=== PATIENT | female | born 1980 | race Caucasian/White ===

== ENCOUNTER 2019-11-11 16:42 | Emergency (ER) | payer BC, SELFPAY ==
--- NOTE | 2019-11-11 16:52 | ED.FEMALEGU ---
HPI - Female Genitourinary General Chief complaint: Urogenital-Female Stated complaint: abd pain/pos bladder infection Time Seen by Provider: 11/11/19 17:03 Source: patient and RN notes reviewed Mode of arrival: ambulatory Limitations: no limitations History of Present Illness HPI Narrative: 39-year-old female presents with concern for possible bladder infection. Reports intermittent left lower quadrant abdominal/suprapubic pain. She reports pain is been present for approximately 2 weeks. Reports she was seen by her junior marketing associate 4 days ago and was swabbed for STDs, yeast, bacterial vaginosis and was given prescriptions for Diflucan and Flagyl. Reports she received a phone call today letting her know that all those tests were negative. Reports normal pelvic exam 4 days ago. She denies abnormal vaginal discharge, abnormal vaginal bleeding, fever, nausea, vomiting, flank pain. Reports she recently started control pills-Loestrin. Reports her last menstrual period was 3 weeks ago, reports having a normal bowel movement yesterday. She denies dysuria, hematuria. Reports intermittent frequency MD elicited complaint: UTI Related Data Home Medications Medication Instructions Recorded Confirmed alprazolam 0.25 mg PO DAILY PRN 09/04/19 09/19/19 eszopiclone 2 mg PO HS 11/11/19 11/11/19 norethindrone-e.estradiol-iron [Lo 1 tablet PO DAILY 11/11/19 11/11/19 Loestrin Fe] Allergies Allergy/AdvReac Type Severity Reaction Status Date / Time egg Allergy Mild GI Verified 11/11/19 17:00 DISTRESS, CRAMPING Influenza Virus Vaccines Allergy Unknown stomach Verified 11/11/19 17:00 pain Review of Systems Review of Systems: Narrative: CONSTITUTIONAL: Denies malaise, chills, sweats, or fever. CARDIOVASCULAR: Denies chest pain, palpitations, or edema. RESPIRATORY: Denies cough or dyspnea. GASTROINTESTINAL: Reports left lower quadrant abdominal/suprapubic pain. Denies nausea, vomiting, diarrhea, bloody, or mucous stools. Denies constipation GENITOURINARY: Denies dysuria, urgency or hematuria. Reports occasional frequency SKIN: Denies rash or itching. Denies abnormal vaginal discharge or bleeding MUSCULOSKELETAL: Denies back pain, joint pain, or myalgia. NEUROLOGIC: Denies numbness, weakness, or headache. All systems reviewed & are unremarkable except as noted in HPI and below PMFSH Social History Social History Smoking status: Never smoker Second hand tobacco smoke exposure: No Alcohol intake: current Gender identity (if verbalized by the patient): Female Comments At time of signature, agree with nursing past medical, surgical, social and family history. There is no relevant family history pertinent to the presenting complaint Exam Narrative: Exam Narrative: GENERAL: Well-appearing, well-nourished, and in no acute distress. HEAD: Normocephalic. EYES: PERRLA, conjunctivae clear. NECK: Supple. No lymphadenopathy CHEST: Clear to auscultation. No respiratory distress. HEART: Regular rate and rhythm. No murmur heard. Normal peripheral pulses. ABDOMEN: Soft, nontender upon palpation, nondistended, normal active bowel sounds, no palpable or pulsatile masses, no guarding. No CVA tenderness SKIN: Warm, dry, no rash. NEURO: Alert and oriented x3. PSYCH: Normal mood and affect : Other: Discussed pelvic exam with patient, patient reports having a pelvic exam with her sugar cane farm manager on Sunday for this pain, and declines a pelvic exam. Course Course Emergency Course: Discussed with patient limited diagnostic capability at the [facility]. Discussed seeking further evaluation in the emergency department. Patient reports she would rather seek further evaluation with her primary care provider. Reports she will go to the emergency room symptoms worsen or do not improve or she can see her doctor. Patient is aware of diagnosis, understands and agrees to treatment plan. Anticipato
[2019-11-11 16:54] VITALS: BP 112/47; PULSE 65; RESP 16; TEMP 37.1; O2SAT 100
== END 2019-11-11 17:19 | disposition home or self-care (01) ==
PROVIDERS: Emergency Provider Nurse Practitioner; PCP Internal Medicine
DX: R10.32 Left lower quadrant pain (principal); F41.9 Anxiety disorder, unspecified
CPT/HCPCS: 81003; 87086; 99213; G0463

== ENCOUNTER 2020-09-08 06:54 | Outpatient (NON) | payer BC, SELFPAY ==
[2020-09-08 18:06] LABS: SARS-CoV-2 RNA PCR Negative
== END 2020-09-08 06:55 ==
PROVIDERS: PCP Internal Medicine; Visit Provider Internal Medicine
DX: Z20.828 Contact with and (suspected) exposure to other viral communicable diseases (principal)
CPT/HCPCS: 87635; C9803; U0003

== ENCOUNTER → 2020-11-15 08:57 | Outpatient (CLI) | payer BC, SELFPAY ==
[2020-11-15 19:33] LABS: SARS-CoV-2 RNA PCR Negative
== END ==
PROVIDERS: PCP Internal Medicine; Visit Provider Internal Medicine
DX: R68.89 Other general symptoms and signs (principal); Z20.822 Contact with and (suspected) exposure to COVID-19
CPT/HCPCS: C9803; U0003; U0005

== ENCOUNTER 2022-05-24 13:05 | Emergency (ER) | payer BC, SELFPAY ==
[2022-05-24] VITALS (26 sets, daily range): BP systolic 103–125; BP diastolic 52–77; PULSE 58–86; RESP 9–20; TEMP 36.6; O2SAT 96–100
--- NOTE | ~2022-05-24 | US_ITS ---
EXAMINATION: US pelvic complete w TV DATE: 05/24/2022 15:23 INDICATION: vaginal bleeding TECHNIQUE: Multiple transabdominal and endovaginal sonographic images of the pelvis were obtained. COMPARISON: 10/17/2021, CT abdomen and pelvis 02/15/2010 FINDINGS: Uterus: 9.9 x 6.9 x 6.1 cm. Endometrial complex measures 5 mm. 2.5 cm myometrial uterine fibroid. Right Ovary: 3.3 x 1.5 x 2.3 cm. Vascular flow is present. Left Ovary: 3.2 x 2.4 x 2.5 cm. Vascular flow is present. There is small volume free fluid in the pelvis, within physiologic range. IMPRESSION: Uterine fibroid. Otherwise normal pelvic ultrasound findings. Reviewed, dictated and finalized at location K.
--- NOTE | 2022-05-24 13:55 | ED.FEMALEGU ---
HPI - Female Genitourinary General Chief complaint: Vaginal Bleeding Stated complaint: vag bleeding Time Seen by Provider: 05/24/22 13:49 Source: patient Mode of arrival: ambulatory Limitations: no limitations History of Present Illness HPI Narrative: The patient is a 41-year-old female presenting to the emergency department for evaluation of vaginal bleeding. Patient states that she had an IUD placed approximately 6 months ago and has had some intermittent bleeding since that time. She states that she did have a normal menstrual period 2 weeks ago, with onset of heavy vaginal bleeding this morning. Patient states that she is soaking through a regular tampon every 15 to 30 minutes. Patient states that due to the significant amount of bleeding and some lightheadedness, patient decided to seek care in the emergency department after discussion with her LEAD RAMP AGENT Dr. Gonzales. Patient reports minimal pelvic cramping. Denies dysuria or hematuria. Patient states that she has had an IUD in place, and has no history of regular menstrual periods. Patient denies syncopal event. She denies numbness or weakness. Related Data Home Medications Medication Instructions Recorded Confirmed escitalopram oxalate 10 mg tablet 10 mg PO DAILY 08/18/20 11/15/20 (Lexapro) Allergies Allergy/AdvReac Type Severity Reaction Status Date / Time egg Allergy Mild GI Verified 05/24/22 13:30 DISTRESS, CRAMPING Influenza Virus Vaccines Allergy Unknown stomach Verified 05/24/22 13:30 pain Review of Systems Review of Systems: CONSTITUTIONAL: Denies fever, chills, or sweats. CARDIOVASCULAR: Denies chest pain, palpitations, or edema. RESPIRATORY: Denies cough or dyspnea. GASTROINTESTINAL: Denies abdominal pain, nausea, vomiting, or diarrhea. Reports mild pelvic pain. GENITOURINARY: Denies dysuria or hematuria. Reports vaginal bleeding. SKIN: Denies rash or itching. MUSCULOSKELETAL: Denies back pain, joint pain, or myalgia. NEUROLOGIC: Denies headache, numbness, or weakness. 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 EYES: PERRLA and EOMI. ENT: Nares clear, no rhinorrhea or epistaxis. Mucous membranes moist. NECK: Supple. CHEST: No respiratory distress, breathing even and non labored HEART: Regular rate, sinus rhythm ABDOMEN:Non distended, non tender Pelvic: Labia majora and minora normal without lesions. Vagina with blood including large blood clots; Os is dilated. IUD nearly out of the cervix. No cervical motion tenderness. No adnexal tenderness or fullness bilaterally. EXTREMITIES: Normal range of motion. No edema. SKIN: Warm, dry, no rash. NEURO:No focal deficits. Alert and oriented x3 Course Vital Signs Vital signs: Vital Signs Temperature 36.6 C 05/24/22 13:27 Pulse Rate 80 05/24/22 13:27 Respiratory Rate 14 05/24/22 13:27 Blood Pressure 111/52 L 05/24/22 13:27 Pulse Oximetry 100 05/24/22 13:27 Oxygen Delivery Room Air 05/24/22 13:27 Temperature 36.6 C 05/24/22 13:27 Pulse Rate 65 05/24/22 15:45 Respiratory Rate 16 05/24/22 15:45 Blood Pressure 108/64 05/24/22 15:45 Pulse Oximetry 100 05/24/22 15:45 Oxygen Delivery Elizabeth
[2022-05-24 14:17] LABS: Basophils Absolute Auto 0.1 K/mm3 (0.0-0.1); Basophils Percent Auto 0.6 % (0.2-1.2); Eosinophils Absolute Auto 0.2 K/mm3 (0-0.3); Eosinophils Percent Auto 2.5 % (0-4.4); Hematocrit 37.3 % (37.0-47.0); Hemoglobin 12.2 g/dL (12.0-15.0); Immature Granulocyte Absolute 0.02 K/mm3 (0.00-0.031); Immature Granulocyte Percent A 0.2 % (0-0.5); Lymphocytes Absolute Auto 2.25 K/mm3 (0.9-3.2); Lymphocytes Percent Auto 25.3 % (18.3-44.2); Mean Corpuscular HGB Conc 32.7 g/dl (32-36); Mean Corpuscular Hemoglobin 30.3 pg (26-34); Mean Corpuscular Volume 92.8 fl (80-100); Mean Platelet Volume 11.7 fl (7.4-10.4); Monocytes Absolute Auto 0.7 K/mm3 (0.1-0.6); Monocytes Percent Auto 7.4 % (2.6-8.5); Neutrophils Absolute Auto 5.7 K/mm3 (1.3-6.7); Platelet Count Result 234 k/mm3 (150-375); Red Blood Count 4.02 M/mm3 (4.2-5.4); Red Cell Distribution Width 13.1 % (11.5-14.5); White Blood Count 8.9 K/mm3 (4.5-10.0)
[2022-05-24 14:29] LABS: Alanine Aminotransferase 14 U/L (6-35); Albumin Level 4.3 g/dL (3.5-5.1); Alkaline Phosphatase 50 U/L (38-126); Anion Gap -1 mmol/L (8-16); Aspartate Amino Transferase 27 U/L (14-36); Bilirubin,Total 0.4 mg/dL (0.2-1.3); Blood Urea Nitrogen 13 mg/dL (7-17); Calcium 8.9 mg/dL (8.4-10.2); Carbon Dioxide 30 mmol/L (22-30); Chloride 102 mmol/L (98-107); Estimated CRCL calculation 75 ml/min; Estimated Glomerular Filt Rate > 60; Glucose 73 mg/dL (65-110); Potassium 4.2 mmol/L (3.4-5.0); Sodium 131 mmol/L (137-145)
[2022-05-24 14:34] LABS: Appearance Urine Slightly Cloudy (Clear); Bilirubin Urine Negative (Negative); Blood Urine 3+ (Negative); Color Urine Yellow (Yellow); Glucose Urine UA Negative (Negative); Ketones Urine Negative (Negative); Leukocyte Esterase Ur Negative LEU/UL (Negative); Nitrate Urine Negative (Negative); Protein Urine Negative (Negative); Urobilinogen Urine 0.2 mg/dL (<2.0); pH Urine 6.5 (5.0-9.0)
[2022-05-24 14:45] LABS: Beta HCG Quantitative < 2.39 mIU/ML
[2022-05-24 14:46] LABS: Mucus Urine Rare /lpf; RBC Urine 21-50 /hpf (0-2)
[2022-05-24 14:47] LABS: Add Urine Microscopic? YES
[2022-05-24 14:49] LABS: Prothrombin Time 13.2 Seconds (11.1-14.7)
--- NOTE | 2022-05-24 15:11 | PC.NURSE ---
Pt in ultrasound at this time
[2022-05-24] MEDS: TRANEXAMIC ACID 1,000 MG/10 ML AMPUL 1000 MG IV PUSH (15:44)
[2022-05-24 16:08] LABS: Hematocrit 35.3 % (37.0-47.0); Hemoglobin 11.6 g/dL (12.0-15.0)
== END 2022-05-24 18:00 | disposition home or self-care (01) ==
PROVIDERS: Emergency Provider Emergency Medicine; PCP Family Medicine
DX: N93.9 Abnormal uterine and vaginal bleeding, unspecified (principal); Z97.5 Presence of (intrauterine) contraceptive device; D25.9 Leiomyoma of uterus, unspecified
CPT/HCPCS: 36415; 76830; 76856; 80053; 81001; 84443; 84702; 85014; 85018; 85025; 85610; 85730; 86850; 86900; 86901; 96374; 99284

== ENCOUNTER 2022-05-26 00:40 | Day surgery (SDC) | payer BC, SELFPAY ==
[2022-05-25 13:11] VITALS: BMI 21.2
--- NOTE | 2022-05-25 13:18 | PC.NURSE ---
Report to the Outpatient Waiting Room, entrance under the green pavilion located off [facility], at time 1300 on date 05/26/22. OR Time: 1500. - You and your visitor will be asked to self-screen and do not enter if you have any COVID symptoms. - Only one visitor and NO children visitors are allowed at this time. - The patient visitor is requested to leave or wait in car when not with patient due to restrictions. - A mask is required within the hospital. Patients may have clear liquids (water, carbonated beverages, clear teas, apple juice) until 3 hours prior to surgery with a maximum of 20 ounces. - No food from midnight until time of surgery Take the following medications with a SIP of water the morning of surgery: ESCITALOPRAM Medications to discontinue per physician: N/A Date to take last dose: N/A Please no make-up, nail khmer, hairspray, perfume, deodorant, or body powder the day of surgery. No jewelry (including any body piercings) or valuables the day of surgery, leave them at home. Please take a shower or bath the night before, or the morning of, surgery with an antibacterial soap. Wear comfortable, loose fitting clothing. - Jewelry must be removed prior to entering the operating room. Rings and piercings that are not removed may be cut off. - The hospital will not accept responsibility for valuables. - Please leave all valuables, including medications, at home the day of surgery. If you are going home after surgery, a licensed driver lifter of sanitation truck must drive you home. - NO public transportation without another adult. - We recommend that an adult stay with you for 24 hours following discharge. - We also recommend that you do not drive, make important decision, drink alcoholic beverages, or take any drugs that were not prescribed by your health care provider for at least 24 hours after your discharge time. Follow any additional instructions given to you from your surgeon. If you or anyone in your household have experienced Covid symptoms in the past week, please notify your surgeon or the nurse liaison at the phone number below for possible testing. Telephone instructions given to PT - ESSIE DE SANTIAGO and asked if any additional questions and then verbalized understanding. Patient advised to call surgeon office or pre surgery nurse liaison [phone] if any additional questions.
--- NOTE | 2022-05-25 17:18 | PM.IMHP ---
H&P: HPI History of Present Illness Date/Time: 05/25/22 17:18 Chief Complaint: AUB Narrative: Ines is a 41yo P2002, LMP 05/24/22 who presented to clinic on 05/25/22 for ER follow up. She woke up 05/24/22 @ 0430am thinking she was urinating the bed. She went to the bathroom and was covered in blood. She was soaking through tampons every 15 minutes. It slightly slowed down but at noon, she was still bleeding heavily and started feeling light headed. She went to the ER where blood counts were stable, but she continued to have heavy vaginal bleeding. In one of the large clots (measuring ~4-5cm per the ER doc), the Mirena IUD was expelled. She was give a dose of IV TXA to slow the bleeding. Beta HCG was negative yesterday. US 05/24/22 showed a uterus measuring ~10cm with 2.5cm posterior fibroid, endometrium of 5mm. She had been having some spotting on and off since IUD placement in 10/2021, but no major pain. She denied any pain with intercourse. She had not had a strenuous workout or done anything abnormal. She has tried multiple different kinds of OCPs and reports continuous spotting/AUB and mood changes and does not want to start OCPs again. She no longer desires future fertility. She reports the bleeding has slowed some since yesterday; but still needing to change tampons [id number]. She denies any overt symptoms of anemia currently. 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 Surgical History Surgical History H/O breast augmentation History of gynecological procedure mirena iud insertion - 11/28/2021 Family History Family History Grandparent Diabetes mellitus Other Carcinoma of colon Social History Social History Smoking status: Never smoker Second hand tobacco smoke exposure: No Alcohol intake: current Drinks per week: 3 Substance use: never Substance use type: does not use Additional living arrangements comments: CHILDREN Gender identity (if verbalized by the patient): Female Spiritual care concerns: No Meds Home Medications and Allergies Home Medications Medication Instructions Recorded Confirmed Type escitalopram oxalate 10 mg tablet 10 mg PO DAILY 08/18/20 05/25/22 History (Lexapro) eszopiclone 2 mg tablet 2 mg PO HS 90 days #90 tabs 08/18/20 05/25/22 Rx Allergies Allergy/AdvReac Type Severity Reaction Status Date / Time egg Allergy Mild GI Verified 05/25/22 13:10 DISTRESS, CRAMPING Influenza Virus Vaccines Allergy Unknown stomach Verified 05/25/22 13:10 pain Exam Const: General: cooperative, healthy appearing, comfortable and no acute distress Resp: Effort & Inspection: normal respiratory effort Cardio: Rate: regular rate GI: Inspection: normal to inspection GI Palp: No abdominal tenderness and Yes Soft to palpation : Other: cervix 0.5cm dilated with heavy bleeding (4cm clot/30cc of blood evacuated from vault on 05/25/22) Skin: General skin exam: normal color Neuro: General: patient oriented x3 Extrem: General: normal to inspection Psych: Appearance: grossly normal Affect: normal affect Attitude: cooperative Assessment and Plan Assessment and plan (1) Abnormal uterine bleeding (AUB): Code(s): N93.9 - Abnormal uterine and vaginal bleeding, unspecified Status: Acute (2) IUD failure: Status: Acute (3) Fibroid uterus: Code(s): D25.9 - Leiomyoma of uterus, unspecified Status: Acute Plan - Ines has failed medical management with OCPs and now even expelled an IUD - On US; she has a posterior fibroid; on review of images, might possibly be a type 2 submucosal fibroid which would explain a lot of the heavy bleeding she's currently having. Opt
[2022-05-26] VITALS (11 sets, daily range): BP systolic 98–112; BP diastolic 38–57; PULSE 75–100; RESP 10–14; TEMP 36.7; O2SAT 99–100; BMI 21.2
--- NOTE | 2022-05-26 11:55 | WPDHPUPDATE1 ---
History and Physical Update Update Date/Time: 05/26/22 11:55 History and Physical has been reviewed, including an updated exam of the patient. There are NO changes in the patient's condition. Risks, benefits, and alternatives have been discussed and questions answered. Patient agrees to proceed with procedure.
[2022-05-26] MEDS: LACTATED RINGERS 1,000 ML 30 ML IV CONT ×3 (13:35→17:39)
[2022-05-26] MEDS: KETOROLAC 15 MG/ML VIAL (*BKC) IV PUSH (13:42)
[2022-05-26] MEDS: ACETAMINOPHEN 500 MG TABLET 1000 MG PO (13:42)
--- NOTE | 2022-05-26 14:32 | P.PNAN_ITS ---
Anes - Initial Pre Proc Eval Procedure: Operation Date: 05/26/22 15:00 Proposed Procedures p Laparoscopic Bilateral Salpingectomy, Hysteroscopy, Dilatation and Curettage with Yvonne Endometrial Ablation, Possible Myomectomy - Hattie Gonzales MD Date/Time: 05/26/22 14:32 Surgeon: Hattie Gonzales MD Pre Op Diagnosis: menometrorrhagia Patient Data Age: 41 Gender: F Height: 1.6 m Weight: 54.4 kg Allergies Allergy/AdvReac Type Severity Reaction Status Date / Time egg Allergy Mild GI Verified 05/26/22 13:47 DISTRESS, CRAMPING Influenza Virus Vaccines Allergy Unknown stomach Verified 05/26/22 13:47 pain Home Medications Medication Instructions Recorded Confirmed Type escitalopram oxalate 10 mg tablet 10 mg PO DAILY 08/18/20 05/26/22 History (Lexapro) eszopiclone 2 mg tablet 2 mg PO HS 90 days #90 tabs 08/18/20 05/25/22 Rx norethindrone 1 mg-ethinyl 1 tablet PO DAILY 05/26/22 05/26/22 History estradiol 10 mcg (24)-iron 10 mcg(2) tablet (Lo Loestrin Fe) Patient hx anesthesia problems: none Family hx anesthesia problems: none Results Review: All pre-operative results and documents have been reviewed as part of the pre-operative evaluation. 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 Surgical History Surgical History H/O breast augmentation History of gynecological procedure mirena iud insertion - 11/28/2021 Family History Family History Grandparent Diabetes mellitus Other Carcinoma of colon Social History Social History Smoking status: Never smoker Second hand tobacco smoke exposure: No Alcohol intake: current Drinks per week: 3 Substance use: never Substance use type: does not use Living arrangements: with family Additional living arrangements comments: CHILDREN Gender identity (if verbalized by the patient): Female Spiritual care concerns: No Anes - Eval Final PreProcedure Day of Procedure 05/26/22 14:32 Patient weight: normal Heart: regular rate and rhythm Lungs: clear to auscultation Airway: Mallampati scale class II Neurological: alert and oriented Last oral intake: >/= 8 hours ASA classification: II Emergent: no Anesthetic plan: proceed Anesthesia type and monitoring: general ETT and standard monitoring Results Review: All pre-operative results and documents have been reviewed as part of the pre- operative evaluation. Informed Consent: The patient's anesthetic plan and its attendant risks and benefits were discus sed with the patient/family/POA. Questions were solicited and answers provided to the satisfaction of the patient/family/POA.
--- NOTE | 2022-05-26 15:50 | W.PM.PROC2 ---
Procedure Note - Detailed Date of Procedure 05/26/22 Pre-op Diagnosis menometrorrhagia Post-op Diagnosis Same Procedure Performed Laparoscopic bilateral salpingectomy, hysteroscopy with dilation and curettage, with Yvonne endometrial ablation Surgeon Hattie Gonzales MD Business Services Analyst Nikita Anesthesia General Findings Uterus 9cm, cervix 4cm, slightly polypoid endometrium noted. Uterus w/ small left/posterior subserosal fibroid, normal fallopian tubes, normal left ovary, right ovary with small hemorrhagic cyst, ~20cc of hemoperitoneum evacuated. Good hemostasis at end of case. Description of Procedure Ines was taken to the operating room where she was placed under general endotracheal anesthesia without complications. She was then prepped and draped in the usual sterile fashion in the dorsal lithotomy position with her legs in low Kameron stirrups. A time-out was performed and no preoperative antibiotics were indicated. My attention was turned down below where her bladder was drained via straight catheterization and a sponge on a stick was placed in the vagina. My gloves were changed and my attention was turned to her abdomen. An umbilical incision was made and a 5 mm trocar was placed under direct visualization without complications. Once intra-abdominal placement was confirmed, the abdomen was insufflated with carbon dioxide gas. She was then placed in steep Trendelenburg where the above findings were noted. Two additional 5 mm ports were placed in the left and right lower quadrants under direct visualization without complications. The left fallopian tube was elevated and the mesosalpinx was serially clamped, coagulated, and transected. The proximal end of the tube was then cross clamped coagulated and transected and removed from the abdomen. The same procedure was then performed on the right side without complications. The hemoperitoneum was evacuated from the abdomen. The surgical pedicles were noted to be hemostatic. All instruments were removed from the abdomen and the insufflation was released. All trocars were removed. The 3 laparoscopic incision sites were reapproximated using 4-0 Monocryl in a subcuticular fashion. The incisions were infiltrated with local anesthesia for better pain control. Attention was then turned down below, where a sponge on a stick was removed from the vagina. A bivalve speculum was placed within the vagina. The anterior lip of the cervix was grasped with a single-tooth tenaculum. The uterus was sounded and the cervix was serially dilated to allow for the hysteroscope. The hysteroscope was advanced into the uterine cavity where the above findings were noted. A curettage was then performed until a good uterine cry was noted. The Yvonne endometrial device was then placed within the uterine cavity. The instructions were followed per manufacture's guidelines without complication. Once the test was performed and passed, the endometrial ablation procedure was performed without complications. The device was removed from the uterine cavity. The hysteroscope was once again advanced into the uterine cavity to verify that the entire cavity had been ablated. All instruments were removed from the vagina and good hemostasis was noted. Sponge, lap, instrument, and needle counts were correct at the end the procedure. Patient was awoken from general anesthesia and taken recovery in a stable condition with plans of same-day discharge home. Estimated Blood Loss 20 IV Fluids 1,100 Urine Output 75 Pathology Yes (left and right fallopian tubes and endometrial curettings) Complications No immediate complications Condition Stable Disposition Same day [facility] Billing Surgery - Charge Forward: Surgery Billing
[2022-05-26] MEDS: ONDANSETRON INJ 4 MG/2 ML VIAL IV PUSH (16:19)
[2022-05-26] MEDS: diphenhydrAMINE HCl INJ 50 MG/ML VIAL 25 MG IV PUSH (16:30)
[2022-05-26] MEDS: SCOPOLAMINE 1.5 MG PATCH TRANSDERM (16:30)
--- NOTE | 2022-05-26 16:54 | SUR.PHASEII ---
ELDA GILLESPIE AT BEDSIDE ADMINISTERED 30 OF PROPOFOL
[2022-05-26] MEDS: fentaNYL CITRATE INJ (*CRX) 100 MCG/2 ML VIAL 25 MCG IV PUSH ×4 (17:06→17:46)
== END 2022-05-26 18:35 | disposition home or self-care (01) ==
PROVIDERS: PCP Family Medicine; Visit Provider Obstetrics & Gynecology
PROC: 0UDB8ZZ Extraction of Endometrium, Via Natural or Artificial Opening Endoscopic (ICD-10-PCS; CPT 58558; principal; 2022-05-26 15:00)
DX: N92.1 Excessive and frequent menstruation with irregular cycle (principal); K66.1 Hemoperitoneum; N84.0 Polyp of corpus uteri; D25.2 Subserosal leiomyoma of uterus; N83.201 Unspecified ovarian cyst, right side
CPT/HCPCS: 58563; 58661; 88302; 88305; A9270; J1100; J1170; J1200; J1885; J2250; J2405; J2704; J2710; J3010; J7030; J7120

== ENCOUNTER 2024-01-24 15:27 | Outpatient (CLI) | payer BC, SELFPAY ==
--- NOTE | ~2024-01-24 | XR_ITS ---
EXAMINATION: XR abdomen/kub 1V DATE: 01/24/2024 15:41 INDICATION: Constipation. Bloating. TECHNIQUE: A supine view of the abdomen on 2 radiographs was obtained. COMPARISON: CT abdomen and pelvis 02/15/2010 FINDINGS: There are no dilated loops of bowel. There is a small volume of stool in the colon. There a re phleboliths in the pelvis. IMPRESSION: 1. Normal bowel gas pattern. Reviewed, dictated and finalized at location E.
[2024-01-24 16:58] LABS: Thyroid Stimulating Hormone 0.853 uIU/mL (0.465-4.680)
== END 2024-01-24 15:28 | disposition home or self-care (01) ==
LOC: ANHIMG 15:29
PROVIDERS: Visit Provider Nurse Practitioner Family
DX: K59.00 Constipation, unspecified (principal); R14.0 Abdominal distension (gaseous)
CPT/HCPCS: 36415; 74018; 84443

== ENCOUNTER 2024-06-26 04:40 | Day surgery (SDC) | payer BC, SELFPAY ==
[2024-06-16 10:21] VITALS: BMI 21.4
[2024-06-26 12:42] VITALS: BP 106/62; PULSE 81; RESP 18; TEMP 36.8; O2SAT 100; BMI 21.2
[2024-06-26] MEDS: LACTATED RINGERS 1,000 ML 150 ML IV CONT (13:01)
--- NOTE | 2024-06-26 13:30 | WPDANESEPPF ---
Anes - Initial Pre Proc Eval Procedure: Operation Date: 06/26/24 14:00 Proposed Procedures p Colonoscopy - Asad Piper MD Date/Time: 06/26/24 13:30 Surgeon: Asad Piper MD Pre Op Diagnosis: constipation, abd distension Patient Data Age: 43 Gender: F Height: 1.6 m Weight: 54.5 kg Last Vital Signs Temp 98.2 F 06/26/24 12:42 Pulse 81 06/26/24 12:42 Resp 18 06/26/24 12:42 BP 106/62 06/26/24 12:42 Pulse Ox 100 06/26/24 12:42 O2 Del Method Room Air 06/26/24 12:42 Allergies Allergy/AdvReac Type Severity Reaction Status Date / Time egg Allergy Mild GI Verified 06/26/24 12:48 DISTRESS, CRAMPING Influenza Virus Vaccines Allergy Unknown stomach Verified 06/26/24 12:48 pain Home Medications Medication Instructions Recorded Confirmed Type eszopiclone 2 mg tablet 2 mg PO HS 90 days #90 tabs 08/18/20 06/26/24 Rx escitalopram oxalate 10 mg tablet 10 mg PO DAILY #90 tabs 01/18/24 06/26/24 Rx linaclotide 72 mcg capsule 72 mcg PO DAILY 3 months #90 caps 06/16/24 06/26/24 Rx (Linzess) Patient hx anesthesia problems: none Family hx anesthesia problems: none Results Review: All pre-operative results and documents have been reviewed as part of the pre-operative evaluation. 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 Surgical History Surgical History H/O breast augmentation History of gynecological procedure mirena iud insertion - 11/28/2021 Family History Family History Grandparent Diabetes mellitus Other Carcinoma of colon Social History Social History Smoking status: Never smoker Second hand tobacco smoke exposure: No Alcohol intake: current Drinks per week: 10 Substance use: never Substance use type: does not use Current Housing: Decline to Answer Concerned About Future Housing: Decline to Answer Difficulty Paying Gas/Electric Bills: Decline to Answer Difficulty Paying for Meds: Decline to Answer Currently Unemployed: Decline to Answer Education: Decline to Answer Difficulty w/ Childcare or Family Care: Decline to Answer Living arrangements: with family Additional living arrangements comments: CHILDREN Occupation/Education: occupation Gender identity (if verbalized by the patient): Female Sexual Orientation (if Verbalized by the Patient): Straight or Heterosexual Spiritual care concerns: No Anes - Eval Final PreProcedure Day of Procedure 06/26/24 13:30 Patient weight: normal Heart: regular rate and rhythm Lungs: clear to auscultation Airway: Mallampati scale class 1 Neurological: alert and oriented Last oral intake: >/= 8 hours ASA classification: I Emergent: no Anesthetic plan: proceed Anesthesia type and monitoring: general GIVS and standard monitoring Results Review: All pre-operative results and documents have been reviewed as part of the pre-operative evaluation. Change in bowel habits. Active w walking dogs, no cp or sob w activity. Informed Consent: The patient's anesthetic plan and its attendant risks and benefits were discussed with the patient/family/POA. Questions were solicited and answers provided to the satisfaction of the patient/family/POA.
--- NOTE | 2024-06-26 13:46 | PM.HPGS ---
History of Present Illness History of Present Illness Consent: Risks, benefits, and alternatives have been discussed and questions answered. Patient agrees to proceed with procedure. 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 Surgical History Surgical History H/O breast augmentation History of gynecological procedure mirena iud insertion - 11/28/2021 Family History Family History Grandparent Diabetes mellitus Other Carcinoma of colon Social History Social History Smoking status: Never smoker Second hand tobacco smoke exposure: No Alcohol intake: current Drinks per week: 10 Substance use: never Substance use type: does not use Current Housing: Decline to Answer Concerned About Future Housing: Decline to Answer Difficulty Paying Gas/Electric Bills: Decline to Answer Difficulty Paying for Meds: Decline to Answer Currently Unemployed: Decline to Answer Education: Decline to Answer Difficulty w/ Childcare or Family Care: Decline to Answer Living arrangements: with family Additional living arrangements comments: CHILDREN Occupation/Education: occupation Gender identity (if verbalized by the patient): Female Sexual Orientation (if Verbalized by the Patient): Straight or Heterosexual Spiritual care concerns: No Meds Home Medications and Allergies Home Medications Medication Instructions Recorded Confirmed Type eszopiclone 2 mg tablet 2 mg PO HS 90 days #90 tabs 08/18/20 06/26/24 Rx escitalopram oxalate 10 mg tablet 10 mg PO DAILY #90 tabs 01/18/24 06/26/24 Rx linaclotide 72 mcg capsule 72 mcg PO DAILY 3 months #90 caps 06/16/24 06/26/24 Rx (Linzess) Allergies Allergy/AdvReac Type Severity Reaction Status Date / Time egg Allergy Mild GI Verified 06/26/24 12:48 DISTRESS, CRAMPING Influenza Virus Vaccines Allergy Unknown stomach Verified 06/26/24 12:48 pain Vital Signs Vital Signs - 24 hr 06/26/24 12:42 Temperature 98.2 F Pulse Rate 81 Respiratory Rate 18 Blood Pressure 106/62 Pulse Oximetry 100 Oxygen Delivery Room Air Exam Const: General: comfortable and no acute distress HENMT: Face/Nose/Sinus: Normal nares present Eyes: General: appearance normal, both eyes and all related structures Neck: Neck: no JVD Resp: Auscultation: clear to auscultation bilaterally Cardio: Rate: regular rate Rhythm: regular rhythm GI: Inspection: non-distended GI Palp: Yes Soft to palpation Skin: General skin exam: normal color Neuro: General: gait normal Speech: normal speech Extrem: General: normal to inspection Psych: Mental Status: mental status grossly normal Assessment and Plan Assessment and plan (1) Constipation: Code(s): K59.00 - Constipation, unspecified Status: Acute Assessment and Plan: colonoscopy
[2024-06-26 14:05] VITALS: BP 99/56; PULSE 64; RESP 21; O2SAT 100
[2024-06-26 14:15] VITALS: BP 106/71; PULSE 55; RESP 19; O2SAT 100
[2024-06-26 14:25] VITALS: BP 113/64; PULSE 55; RESP 15; O2SAT 100
== END 2024-06-26 14:33 | disposition home or self-care (01) ==
PROVIDERS: PCP Physician Assistant; Referring Provider Nurse Practitioner Family; Visit Provider Internal Medicine Gastroenterology
PROC: 0DJD8ZZ Inspection of Lower Intestinal Tract, Via Natural or Artificial Opening Endoscopic (ICD-10-PCS; CPT 45378; principal; 2024-06-26 14:00)
DX: K59.00 Constipation, unspecified (principal); R14.0 Abdominal distension (gaseous); Z98.890 Other specified postprocedural states; Z80.0 Family history of malignant neoplasm of digestive organs
CPT/HCPCS: 45378; J2003; J2704; J7120

== ENCOUNTER 2025-06-24 14:33 | Outpatient (CLI) | payer BC, SELFPAY ==
--- NOTE | ~2025-06-24 | MM_ITS ---
EXAMINATION: MM scrn ananya implant BI w favian HISTORY: Screening mammogram TECHNIQUE: Craniocaudal and mediolateral oblique 3-D tomosynthesis images with implant displacement and synthetic 2-D images were generated. Craniocaudal and mediolateral oblique views of the breasts without implant displacement were obtained using full field digital mammography. CAD analysis was submitted and interpreted. COMPARISON: No prior mammogram is available for comparison at this institution. BREAST PARENCHYMAL COMPOSITION: Dense: The breasts are extremely dense, which lowers the sensitivity of mammography. FINDINGS: There is no evidence of suspicious mass, calcification, or architectural distortion to suggest malignancy in either breast. There has been no suspicious interval change. IMPRESSION: 1. No mammographic evidence of malignancy. 2. Recommend routine screening mammography in one year. BI-RADS Category 1: Negative Reviewed, dictated and finalized at location B.
== END 2025-06-24 14:34 | disposition home or self-care (01) ==
LOC: ANHFOHIMG 14:58
PROVIDERS: Visit Provider Obstetrics & Gynecology
DX: Z12.31 Encounter for screening mammogram for malignant neoplasm of breast (principal)
CPT/HCPCS: 77063; 77067